=== PATIENT | female | born 1950 | race Caucasian/White ===

== ENCOUNTER 2020-01-28 15:37 | Outpatient (CLI) | payer BC, MEDICARE, SELFPAY ==
--- NOTE | ~2020-01-28 | CT_ITS ---
EXAMINATION: CT hip LT wo con DATE: 01/28/2020 16:12 INDICATION: Left hip pain TECHNIQUE: High resolution computed tomography (CT) of the left hip was performed without intravenous contrast. Imaging was extended to include the left femur through the distal aspect of the intramedul cheko rudi fixation. Additional sagittal and coronal reconstructions were performed. Automated exposure control and iterative reconstruction technique were employed. The dose-length product was 481.21 mGy -cm. COMPARISON: 07/03/2018 FINDINGS: Again seen is antegrade intramedullary rudi fixation of an intratrochanteric fracture of the proximal left femur. Fixation includes a femoral neck dynamic compression screw and interlocking screw at the level of the distal femur. There is a fracture at the central aspect of the distal screw which is dev iated slightly distally suggesting couple millimeter of subsidence of the intramedullary rudi. There i s thin rim of sclerosis at the margins of an eccentric lucency measuring up to 2.5 mm in thickness al yulissa the right side of the distal tip of the rudi and a small amount of sclerosis extending between the anterior cortex of the distal femur and the distal tip of the rudi suggesting the fracture and slight subsidence is chronic. There is also some callus formation extending around the head of the distal i nterlocking screw. There appears to be solid osseous fusion across portions of the fracture plane. Subacute appearing left femoral subcapital fracture with the cephalad margin of the fracture plane in volving a small portion of the articular surface at the periphery of the femoral head. There is mild inferior displacement of the femoral head resulting in up to 2 mm step-off at the superior to posteri or superior margin of the fracture plane. Subtle linear sclerosis extends from the subcapital fractur e line towards the superomedial aspect of the femoral head suggesting either an additional secondary nondisplaced fracture plane or the margins of a region of osteonecrosis. No evident subsidence of the overlying cephalad articular surface of the femoral head. No definitive left hip joint effusion. Osteoarthritis with mild to moderate nonuniform joint space narrowing at the lateral aspect of the pa tellofemoral compartment of the left knee. No left knee joint effusion. Visualized musculature of the left hemipelvis and left thigh appears unremarkable. Bladder, uterus, bilateral adnexa and visualize d portions of the bowels are unremarkable. No pathologically enlarged pelvic or inguinal lymphadenopa thy appreciated. IMPRESSION: 1. Minimal displacement of a left femoral subcapital fracture which involves a small portion of the p eripheral articular surface with 2 mm step-off. There is either an additional nondisplaced fracture p dov versus sclerotic margin of a region of osteonecrosis which extends to the superomedial aspect of the femoral head with no evidence subsidence of the cephalad articular surface of the femoral head. 2. Osseous fusion across portions of a chronic internally fixed intertrochanteric fracture of the pro ximal left femur with likely chronic failure of an interlocking screw at the distal left femur and sanderson ggestion of mild subsidence of the intramedullary rudi. Reviewed, dictated and finalized at location A. ER COMPRESSED GASES IMPRESSION: 1. Minimal displacement of a left femoral subcapital fracture which involves a small portion of the peripheral articular surface with 2 mm step-off. There is either an additional nondisplaced fracture plane versus sclerotic margin of a r egion of osteonecrosis which extends to the superomedial aspect of the femoral head with no evidence subsidence of the cephalad articular surface of the femor al head. 2. Osseous fusion across portions of
== END 2020-01-28 15:38 | disposition home or self-care (01) ==
PROVIDERS: Visit Provider Physician Assistant
DX: M25.552 Pain in left hip (principal)
CPT/HCPCS: 73700

== ENCOUNTER 2020-04-16 11:51 | Observation (INO) | payer BC, MEDICARE, SELFPAY ==
[2020-04-16] VITALS (9 sets, daily range): BP systolic 116–172; BP diastolic 56–84; PULSE 69–92; RESP 16–24; TEMP 36.4–36.7; O2SAT 91–98; BMI 27.5
--- NOTE | ~2020-04-16 | US_ITS ---
EXAMINATION: US venous doppler [facility] DATE: 04/17/2020 08:15 INDICATION: Lower limb swelling post left total hip arthroplasty. TECHNIQUE: Grayscale ultrasound images without and with compression and Doppler ultrasound images of the bilateral lower extremity veins were obtained. COMPARISON: None. FINDINGS: The visualized portions of right common femoral vein, profunda (deep) femoral vein, femoral vein, pop liteal vein, posterior tibial veins, peroneal veins, gastrocnemius vein and greater saphenous vein ou tflow are patent. The visualized portions of left common femoral vein, profunda femoral vein, femoral vein, popliteal v ein, posterior tibial veins, peroneal veins, gastrocnemius vein and greater saphenous vein outflow ar e patent. IMPRESSION: 1. No deep venous thrombosis in either lower limb. Reviewed, dictated and finalized at location A.
--- NOTE | ~2020-04-16 | XR_ITS ---
EXAMINATION: XR chest 2V DATE: 04/16/2020 12:16 INDICATION: Shortness of breath TECHNIQUE: AP and lateral views of the chest are obtained. COMPARISON: 06/03/2018 FINDINGS: There are airspace opacities of the right middle and lower lobes. There is no pleural effus ion or pneumothorax. The cardiomediastinal silhouette is normal. Multiple old right-sided rib fractur es are noted. In addition. There is vertebroplasty change and lower thoracic and upper lumbar vertebr al bodies. Surgical clips in the right upper quadrant are likely from prior cholecystectomy. IMPRESSION: 1. Minimal airspace opacity of the right middle and lower lobes, consistent with atelectasis versus p neumonia. Reviewed, dictated and finalized at location A. IMPRESSION: 1. Minimal airspace opacity of the right middle and lower lobes, consistent wit h atelectasis versus pneumonia.
--- NOTE | 2020-04-16 11:53 | ECG_ITS ---
Measurements Intervals Webb Rate: 87 P: 48 MA: 153 QRS: 1 QRSD: 144 T: 97 QT: 443 QTc: 534 Interpretive Statements SINUS RHYTHM WITH SINUS ARRHYTHMIA LEFT BUNDLE BRANCH BLOCK BASELINE ARTIFACT- I, III, AVR, AVL ABNORMAL ECG Electronically Signed On 04-16-2020 13:03:47 CDT by Mike Mg D.O.
[2020-04-16 12:17] LABS: Basophils Absolute Auto 0.1 K/mm3 (0.0-0.1); Basophils Percent Auto 0.6 % (0.2-1.2); Eosinophils Percent Auto 0.5 % (0-4.4); Hematocrit 27.6 % (37.0-47.0); Hemoglobin 8.5 g/dL (12.0-15.0); Immature Granulocyte Absolute 0.05 K/mm3 (0.00-0.031); Immature Granulocyte Percent A 0.6 % (0-0.5); Lymphocytes Absolute Auto 1.11 K/mm3 (0.9-3.2); Lymphocytes Percent Auto 12.7 % (18.3-44.2); Mean Corpuscular HGB Conc 30.8 g/dl (32-36); Mean Corpuscular Volume 87.6 fl (80-100); Mean Platelet Volume 8.7 fl (7.4-10.4); Monocytes Absolute Auto 0.5 K/mm3 (0.1-0.6); Monocytes Percent Auto 6.2 % (2.6-8.5); Neutrophils Percent Auto 79.4 % (45.5-73.1); Platelet Count Result 383 k/mm3 (150-375); Red Blood Count 3.15 M/mm3 (4.2-5.4); Red Cell Distribution Width 16.2 % (11.5-14.5); White Blood Count 8.7 K/mm3 (4.5-10.0)
[2020-04-16 12:27] LABS: Blood Urea Nitrogen 16 mg/dL (7-17); Calcium 9.2 mg/dL (8.4-10.2); Carbon Dioxide 26 mmol/L (22-30); Chloride 100 mmol/L (98-107); Estimated CRCL calculation 41 ml/min; Estimated Glomerular Filt Rate 45; Glucose 101 mg/dL (65-105); Potassium 4.2 mmol/L (3.4-5.0); Sodium 136 mmol/L (137-145)
--- NOTE | 2020-04-16 12:51 | ED.SOB ---
HPI - SOB/Dyspnea General Chief Complaint: Shortness of Breath/Dyspnea Stated Complaint: SOB Time Seen by Provider: 04/16/20 12:03 History of Present Illness HPI Narrative: Patient presents with shortness of breath from middle of the night last night. Patient had a left hip replacement on March 28 at [facility] in [facility]. She has been on Eliquis. She has not had any cough wheezing fever or chills. Chest to shortness of breath. Her appetite is good. She has been taking Percocet for her postop pain. The swelling in her left leg is dramatically decreased from yesterday because she elevated. 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 She does not smoke. She drinks moderately. She uses no drugs. MD elicited complaint: shortness of breath Pertinent past history: other (Recent hip surgery) Onset (ago): hour(s) Timing: constant Related Data Home Medications Medication Instructions Recorded Confirmed amlodipine-benazepril 1 cap DAILY 04/16/20 04/16/20 apixaban [Eliquis] 5 mg DAILY 04/16/20 04/16/20 dexlansoprazole [Dexilant] 60 mg PO DAILY 04/16/20 04/16/20 ergocalciferol (vitamin D2) 1 unit PO DAILY 04/16/20 04/16/20 escitalopram oxalate 20 mg PO DAILY 04/16/20 04/16/20 hydrocodone-acetaminophen 1 tablet PO Q4-6H PRN 04/16/20 04/16/20 rosuvastatin 10 mg PO DAILY 04/16/20 04/16/20 Allergies Allergy/AdvReac Type Severity Reaction Status Date / Time Penicillins Allergy Mild Anaphylaxis Verified 04/16/20 12:02 Sulfa (Sulfonamide Allergy Mild Anaphylaxis Verified 04/16/20 12:02 Antibiotics) Review of Systems Review of Systems: Narrative: CONSTITUTIONAL: Denies fever, chills, or sweats. EYES: Denies visual changes, redness, or discharge. ENT: Denies rhinorrhea, congestion, sore throat, or otalgia. CARDIOVASCULAR: Denies chest pain, palpitations, or edema. RESPIRATORY: Denies cough or dyspnea. GASTROINTESTINAL: Denies abdominal pain, nausea, vomiting, or diarrhea. GENITOURINARY: Denies dysuria or hematuria. SKIN: Denies rash or itching. MUSCULOSKELETAL: Denies back pain, joint pain, or myalgia. NEUROLOGIC: Denies headache, numbness, or weakness. PSYCHIATRIC: Denies anxiety or depression. [facility] Past Medical History Medical History Pneumonia Surgical History Surgical History (Updated 04/16/20 @ 12:54 by Pretty Warner MD) History of left hip replacement Social History Social History (Updated 04/16/20 @ 12:55 by Pretty Warner MD) Smoking status: Former smoker Alcohol intake: current Substance use: never Gender identity (if verbalized by the patient): Female Exam Narrative: Exam Narrative: GENERAL: Well-appearing, well-nourished, and in no acute distress. HEAD: Normocephalic, atraumatic. EYES: PERRLA and EOMI. ENT: Nares clear, no rhinorrhea or epistaxis. Mucous membranes moist. NECK: Supple. CHEST: Clear to auscultation. No respiratory distress. HEART: Regular rate and rhythm. No murmur heard. Normal peripheral pulses. ABDOMEN: Soft, nontender, nondistended, normal active bowel sounds. EXTREMITIES: Normal range of motion. Left lower leg is moderately swollen. SKIN: Warm, dry, no rash. NEURO: No focal deficits. Alert and oriented x3. PSYCH: Normal mood and affect. Quite noel lady. Course Consultations Consultation #1: Called the hospitalist at [phone]. Date: 04/16/20 Time: 12:59 Vital Signs Vital signs: Vital Signs Temperature 97.5 F L 04/16/20 11:55 Pulse Rate 92 04/16/20 11:55 Respiratory Rate 24 H 04/16/20 11:55 Blood Pressure 172/83 H 04/16/20 11:55 Pulse Oximetry 95 04/16/20 11:55 Temperature 97.5 F L 04/16/20 11:55 Pulse Rate 75 04/16/20 14:49 Respiratory Rate 18 04/16/20 14:49 Blood Pressure 128/64 04/16/20 14:49 Pulse Oximetry 98 04/16/20 14:49 MDM - SOB/Dyspnea Differential Diagnosis Differential diagnosis: Likely congestive heart failure, community acquired p
[2020-04-16 13:29] LABS: Lactic Acid 0.8 mmol/L (0.7-2.1)
[2020-04-16 13:38] LABS: NT Pro B Type Natriuretic Pept 14000 PG/ML (5-100)
[2020-04-16] MEDS: FUROSEMIDE INJ 40 MG/4 ML VIAL IV PUSH (14:31)
--- NOTE | 2020-04-16 17:40 | ADMGEN ---
This patient, Mirta Dow, was admitted to [facility] Surg Room 327-01. Patient/family oriented to hospital policies and general routines including ID bracelet, bed and alarms, visiting hours, pain management, procedures, bathroom and other care routines, personal items, smoking policy, room service/diet, and visiting hours. Valuables list has been completed. Information on how to activate the Rapid Response Team has been discussed. Patient/Family are encouraged to report perceived risks to care and to ask questions if they do not understand what they are told or what they should do. ADMITTED AT 1510
--- NOTE | 2020-04-16 18:25 | PM.IMHP ---
H&P: HPI History of Present Illness Chief complaint: pneumonia/LBBB/anemia Narrative: Mirta Dow is a 69 year old female presenting with dyspnea. On March 28 she underwent left total hip arthroplasty in [place]. Since that time she has not been taking her blood pressure medication because the blood pressure been running low in the hospital. She did not measure it at home. She felt well until the lime slaker hours of 04/16. She did notice increased swelling in her left lower extremity. She did not have a venous Doppler in [place]. She did not have pain or redness. 04/16 she propped the left leg up while in bed. When she awakened to urinate in the middle of the night she noted she was short of breath walking to the bathroom and back. This happened twice. When she awakened in morning she brushed her teeth it was very short of breath. She rested and then took her dog to the front door and again was very short of breath. Denied palpitations chest pain pressure syncope or presyncope or dizziness. Denied cough upper respiratory congestion sore throat fevers chills or sweats. Denied recent travel. Denied exposure to ill individuals. Denied prior history of congestive heart failure. Does have hypertension and hyperlipidemia and quit smoking in 2008 after about 40 pack years. Review of Systems Review of Systems: All systems reviewed & are unremarkable except as noted in HPI and below PMFSH Past Medical History Medical History (Updated 04/16/20 @ 18:32 by James Juares MD) Fracture of left hip ORIF 2019 GERD (gastroesophageal reflux disease) Pneumothorax at age 58 Surgical History Surgical History (Updated 04/16/20 @ 18:33 by James Juares MD) H/O lumbosacral spine surgery 4 times History of left hip replacement History of total left hip arthroplasty 03/28/2020 Hx of appendectomy Family History Family History (Updated 04/16/20 @ 18:36 by James Juares MD) Father Colon cancer Mother Lung cancer Acute myocardial infarction Sibling Non-Hodgkin lymphoma Bypass graft stenosis Social History Social History (Updated 04/16/20 @ 18:39 by James Juares MD) Smoking packs per day: 1 Smoking cigarettes per day: 20.0 Years smoked: 40 Smoking pack-years: 40.00 Smoking status: Former smoker Alcohol intake: current Alcohol use details: occasional cocktail Substance use: never Living arrangements: alone Occupation/Education: occupation Additional occupation/education comments: salon receptionist at [employer] Gender identity (if verbalized by the patient): Female Meds Home Medications and Allergies Home Medications Medication Instructions Recorded Confirmed Type amlodipine-benazepril 1 cap DAILY 04/16/20 04/16/20 History apixaban [Eliquis] 5 mg DAILY 04/16/20 04/16/20 History dexlansoprazole [Dexilant] 60 mg PO DAILY 04/16/20 04/16/20 History ergocalciferol (vitamin D2) 1 unit PO DAILY 04/16/20 04/16/20 History escitalopram oxalate 20 mg PO DAILY 04/16/20 04/16/20 History hydrocodone-acetaminophen 1 tablet PO Q4-6H PRN 04/16/20 04/16/20 History rosuvastatin 10 mg PO DAILY 04/16/20 04/16/20 History Allergies Allergy/AdvReac Type Severity Reaction Status Date / Time Penicillins Allergy Mild Anaphylaxis Verified 04/16/20 12:02 Sulfa (Sulfonamide Allergy Mild Anaphylaxis Verified 04/16/20 12:02 Antibiotics) Vital Signs Vital Signs - 24 hr 04/16/20 11:55 04/16/20 12:01 04/16/20 13:15 Temperature 97.5 F L Pulse Rate 92 83 84 Respiratory Rate 24 H 18 Blood Pressure 172/83 H 168/84 H Pulse Oximetry 95 95 04/16/20 14:11 04/16/20 14:49 04/16/20 17:14 Temperature Pulse Rate 82 75 75 Respiratory Rate 16 18 20 Blood Pressure 151/67 H 128/64 Pulse Oximetry 97 98 91 04/16/20 18:00 Temperature 98.0 F Pulse Rate 69 Respiratory Rate 18 Blood Pressure 136/65 Pulse Oximetry 98 Exam Narrative: Exam Narrative: HEENT: PAPI ESQUIVEL s
[2020-04-17] VITALS (10 sets, daily range): BP systolic 109–140; BP diastolic 63–75; PULSE 60–73; RESP 18–21; TEMP 35.9–37.1; O2SAT 94–98
[2020-04-17 07:15] LABS: Blood Urea Nitrogen 16 mg/dL (7-17); Calcium 8.9 mg/dL (8.4-10.2); Carbon Dioxide 30 mmol/L (22-30); Chloride 100 mmol/L (98-107); Estimated CRCL calculation 44 ml/min; Estimated Glomerular Filt Rate 49; Glucose 105 mg/dL (65-105); Sodium 136 mmol/L (137-145)
[2020-04-17] MEDS: POTASSIUM CHLORIDE 20 MEQ TABLET.ER PO (09:01)
[2020-04-17] MEDS: ESCITALOPRAM OXALATE 10 MG TABLET 20 MG PO (09:02)
[2020-04-17] MEDS: FUROSEMIDE INJ 40 MG/4 ML VIAL 20 MG IV PUSH ×2 (09:02→17:20)
[2020-04-17] MEDS: APIXABAN 5 MG TABLET BY MOUTH (09:02)
[2020-04-17] MEDS: ROSUVASTATIN 10 MG TABLET PO (09:02)
[2020-04-17] MEDS: PANTOPRAZOLE 40 MG TABLET PO (09:02)
--- NOTE | 2020-04-17 17:21 | PM.IMPN ---
Progress Note: A&P Assessment and Plan (1) CHF with unknown LVEF: Code(s): I50.9 - Heart failure, unspecified Status: Acute Assessment and Plan: New onset, likely due to hypertensive heart disease, r/o ischemic heart disease TSHr WNL Echo 04/18 IV fursemide F/u labs Adjust meds pending echo results (2) Hypoxia: Code(s): R09.02 - Hypoxemia Status: Acute Assessment and Plan: Acute Clinically due to CHF (3) Leg edema, left: Code(s): R60.0 - Localized edema Status: Acute Assessment and Plan: No DVT by doppler (4) Complete left bundle branch block: Code(s): I44.7 - Left bundle-branch block, unspecified Status: Acute Assessment and Plan: Present since at least 2013 (5) Anemia: Qualifiers: Anemia type: unspecified type Qualified Code(s): D64.9 - Anemia, unspecified Code(s): D64.9 - Anemia, unspecified Status: Acute Assessment and Plan: Post left total hip arthroplasty (6) Thrombocytosis: Code(s): D47.3 - Essential (hemorrhagic) thrombocythemia Status: Acute Assessment and Plan: Likely postoperative Subjective Date/time seen: 04/17/20 12:00 Interval history: Admitted 04/16 with dyspnea, new onset CHF. 04/17. Breathing much better. Continues to require supplemental oxygen. Denied chest pain, abdominal pain, dysuria, abnormal bleeding, joint pain, dizziness, weakness. Review of Systems Review of Systems: All systems reviewed & are unremarkable except as noted in HPI and below Exam Narrative: Exam Narrative: HEENT: EOMI, PERRL, sclerae nonicteric, pharyngeal mucosa pink and intact NECK: No JVD, adenopathy, or thyromegaly CHEST: Clear to auscultation. Normal effort. HEART: NL S1/S2, regular, no murmur ABDOMEN: BS+, soft, nontender, no mass, no bruits EXTREMITIES: No cyanosis, 1+ edema LLE, none RLE, pedal pulses intact NEUROLOGIC: CN intact and symmetric to inspection. MUSCULOSKELETAL: Tone and strength symmetric. PSYCH: Alert. Oriented to person, place, and time. Objective Data Vital Signs Vital Signs: Vital Signs - 24 hr 04/16/20 18:00 04/16/20 20:00 04/16/20 22:00 Temperature 98.0 F 97.9 F Pulse Rate 69 83 85 Respiratory Rate 18 20 Blood Pressure 136/65 116/56 L Pulse Oximetry 98 93 04/17/20 00:00 04/17/20 03:17 04/17/20 04:00 Temperature 98 F Pulse Rate 60 65 66 Respiratory Rate 20 Blood Pressure 128/66 Pulse Oximetry 96 04/17/20 05:46 04/17/20 08:00 04/17/20 10:00 Temperature 98.4 F 98.7 F Pulse Rate 64 72 63 Respiratory Rate 20 20 Blood Pressure 109/69 110/72 Pulse Oximetry 97 98 04/17/20 12:57 04/17/20 14:00 Temperature 96.7 F L Pulse Rate 65 Respiratory Rate 21 H Blood Pressure 112/75 Pulse Oximetry 97 98 Intake/Output Intake/Output: Intake & Output 04/14/20 04/15/20 04/16/20 04/17/20 23:59 23:59 23:59 23:59 Intake Total 590 920 Output Total 800 Balance 590 120 Meds/Results Medications: Active Medications Generic Name Dose Route Start Last Admin Trade Name Freq PRN Reason Stop Dose Admin Hydrocodone Bitart/Acetaminophen 1 tab 04/16/20 18:47 04/17/20 12:38 [place] 5-325 Mg PO 1 tab Q4-6H PRN Administration Pain, Moderate Apixaban 5 mg 04/17/20 09:00 04/17/20 09:02 Eliquis BY MOUTH 5 mg DAILY WILLIAM Administration Escitalopram Oxalate 20 mg 04/17/20 09:00 04/17/20 09:02 Lexapro PO 20 mg DAILY WILLIAM Administration Furosemide 20 mg 04/17/20 09:00 04/17/20 17:20 Lasix Inj IV PUSH 20 mg BID WILLIAM Administration Pantoprazole Sodium 40 mg 04/17/20 09:00 04/17/20 09:02 Protonix PO 05/17/20 09:01 40 mg DAILY WILLIAM Administration Potassium Chloride 20 meq 04/17/20 08:00 04/17/20 09:01 Kcl Tablet PO 20 meq DAILY@0800 WILLIAM Administration Rosuvastatin Calcium 10 mg 04/17/20 09:00 04/17/20 09:02 Crestor PO 10 mg HOSSEIN
--- NOTE | 2020-04-18 | ECHO_ITS ---
Patient Info Name: Mirta Sanders Dow Age: 69 years : 1950 Gender: Female Ht: 65 in Wt: 165 lbs BSA: 1.87 m2 HR: 69 bpm BP: 163 / 79 mmHg Heart Rhythm: Sinus Rhythm Technical Quality: Fair Exam Date: 04/18/2020 10:26 AM Exam Location: [facility] Pulmonary Patient Status: Outpatient Admit Date: 04/16/2020 Staff Ordering Physician: James Juares MD Cafeteria Cook: Griselda Ricks RDCS Attending Provider: James Juares MD Referring Physician: Mor BURGESS; Exam Type: CA echo doppler color flow Study Info Indications I50.40 - Unspecified combined systolic (congestive) and diastolic (congestive) heart failure Complete two-dimensional, color flow and Doppler transthoracic echocardiogram is performed. Summary 1. Left ventricular chamber dimension is mildly enlarged. 2. Left ventricular systolic function is normal, estimated at 55-60%. 3. There is mildly increased left ventricular wall thickness. 4. Left ventricular septal wall motion is abnormal with septal motion related to bundle branch block. 5. The left ventricular diastolic function is grade I diastolic dysfunction. 6. Left atrial chamber dimension is mildly enlarged. 7. Mild pulmonary hypertension, estimated pulmonary arterial systolic pressure is 35 mmHg. 8. There is mild tricuspid valve regurgitation. 9. There is mild mitral valve regurgitation. Left Ventricle Left ventricular chamber dimension is mildly enlarged. Left ventricular systolic function is normal, estimated at 55-60%. There is mildly increased left ventricular wall thickness. Left ventricular septal wall motion is abnormal with septal motion related to bundle branch block. The left ventricular diastolic function is grade I diastolic dysfunction. Right Ventricle Right ventricular chamber dimension is normal. Right ventricular systolic function is normal. Left Atria Left atrial chamber dimension is mildly enlarged. Right Atria Right atrial chamber dimension is normal. Aortic Valve The aortic valve is trileaflet. There is mild aortic valve sclerosis. There is no aortic valve stenosis. There is trace aortic valve regurgitation. Pulmonic Valve The pulmonic valve is normal. There is no pulmonic valve stenosis. There is trace pulmonic regurgitation. Mitral Valve The mitral valve has calcified annulus. There is no mitral valve stenosis. There is mild mitral valve regurgitation. Tricuspid Valve The tricuspid valve leaflets are normal. There is no significant tricuspid valve stenosis. There is mild tricuspid valve regurgitation. Mild pulmonary hypertension, estimated pulmonary arterial systolic pressure is 35 mmHg. Pericardium/Pleural The pericardium appears normal. There is no pericardial effusion. Inferior Vena Cava Normal inferior vena cava with <50% collapse upon inspiration consistent with elevated right atrial pressure, 10 mmHg. Aorta The aortic root size at the sinus of Valsalva is normal. The prox ascending aorta size is normal. Left Ventricular Outflow Tract Name Value Normal LVOT 2D LVOT Diameter 2.0 cm LVOT Doppler LVOT Peak Gradient
[2020-04-18 02:00] VITALS: BP 151/72; PULSE 71; RESP 18; TEMP 37.1; O2SAT 96
[2020-04-18 06:00] VITALS: BP 163/79; PULSE 69; RESP 18; TEMP 36.7; O2SAT 94
[2020-04-18 06:46] LABS: Blood Urea Nitrogen 17 mg/dL (7-17); Carbon Dioxide 33 mmol/L (22-30); Chloride 100 mmol/L (98-107); Estimated CRCL calculation 38 ml/min; Estimated Glomerular Filt Rate 41; Glucose 111 mg/dL (65-105); Potassium 3.9 mmol/L (3.4-5.0); Sodium 137 mmol/L (137-145)
--- NOTE | 2020-04-18 09:11 | PM.DS ---
DS: Summary Hospital Course Reason for hospitalization: SOB, swelling Hospital Course: Admitted with dyspnea and LE edema (L>R). Troponin and EKG unremarkable. CXR c/w CHF. SARS-CoV-2 negative. Responded well to IV furosemide for diuresis. LE venous doppler negative. Status at Discharge Overall status at discharge: patient is progressing back to baseline Time Spent with Patient Time attestation: Total time spent providing and/or coordinating discharge services: Time spent: Greater than 30 minutes Exam Narrative: Exam Narrative: HEENT: EOMI, PERRL, sclerae nonicteric, pharyngeal mucosa pink and intact NECK: No JVD, adenopathy, or thyromegaly CHEST: Clear to auscultation. Normal effort. HEART: NL S1/S2, regular, no murmur ABDOMEN: BS+, soft, nontender, no mass, no bruits EXTREMITIES: No cyanosis, 1+ edema LLE, none RLE, pedal pulses intact NEUROLOGIC: CN intact and symmetric to inspection. MUSCULOSKELETAL: Tone and strength symmetric. PSYCH: Alert. Oriented to person, place, and time. DS: Data Data Completed and Pending Labs on day of discharge: Labs from last 24 hours 04/18/20 04/16/20 06:13 13:16 Sodium 137 Potassium 3.9 Chloride 100 Carbon Dioxide 33 H BUN 17 Creatinine 1.30 H Estim Creat Clear Calc 38 Estimated GFR 41 L Glucose 111 H Calcium 9.0 COVID-19 Pt Symptomatic Not Reportable COVID-19 PCR Interp Not detected SARS-CoV-2 Source Not Reportable SARS-CoV-2 RNA (RT-PCR) Not Reportable Preliminary micro results at discharge 04/16/20 13:07 Blood Culture - Preliminary Blood 04/16/20 13:07 Blood Culture - Preliminary Blood Discharge Plan Discharge Consulting providers: Bebeto Cottrell ; Antelmo Rios ; Zeferino Hampton ; Mike Mg Discharging Clinician: James Juares Patient Disposition: Home Health Service Activity: as tolerated Diet: heart healthy and low sodium Discharge Instructions: per care coordination, pt. is current with [facility] and will resume services. [facility] can be contacted at [phone]. Nursing, please fax discharge instructions to [phone] once complete. Thank you. Weight daily and call MD if weight increases more than 2 pounds in any day or 4 pounds in a week. Check BP twice daily, AM and PM, record results, and report to MD in one week. DO NOT take BP medication if BP is under 120/70. If you feel dizzy, check BP sitting and after two minutes of standing;. Call MD if BP exceeds 160/100. Call MD if shortness of breath recurs. Patient Instructions: Antibiotic Form, Apixaban (By mouth), Heart Failure (DC), Heart Healthy Diet (DC), Low-Sodium Diet (DC) Stand Alone Forms: General Discharge Information Follow-up/Referrals: UNKNOWN,DOCTOR [Primary Care Provider] - Call for Appointment Discharge Medications: New lisinopril-hydrochlorothiazide 20-25 mg tablet 1 tablet PO DAILY Qty: 30 RF: 0 Continued hydrocodone-acetaminophen 5-325 mg tablet 1 tablet PO Q4-6H PRN (Reason: Pain, Moderate) RF: 0 ergocalciferol (vitamin D2) 1,250 mcg (50,000 unit) capsule 1 unit PO DAILY RF: 0 escitalopram oxalate 20 mg tablet 20 mg PO DAILY RF: 0 rosuvastatin 10 mg tablet 10 mg PO DAILY RF: 0 Dexilant 60 mg capsule,biphase delayed releas 60 mg PO DAILY RF: 0 Eliquis 5 mg Tablet 5 mg DAILY RF: 0 Discontinued amlodipine-benazepril 10-20 mg capsule 1 cap DAILY RF: 0 Other Ambulatory Orders: CA stress moisés w NM (Routine) Timeframe: 1 Week Location: Determined by Patient Ordered By: James Juares Date of admission: 04/16/20 13:02 Primary Care Provider: UNKNOWN,DOCTOR Admitting Provider: James Juares Discharge Date/Time: 04/18/20 14:45 Attending physician on admission: James Juares Condition: Stable Quality VTE Prophylaxis VTE prophylaxis: pharmacologic ordered
[2020-04-18] MEDS: APIXABAN 5 MG TABLET BY MOUTH (09:15)
[2020-04-18] MEDS: FUROSEMIDE INJ 40 MG/4 ML VIAL 20 MG IV PUSH (09:15)
[2020-04-18] MEDS: POTASSIUM CHLORIDE 20 MEQ TABLET.ER PO (09:15)
[2020-04-18] MEDS: ESCITALOPRAM OXALATE 10 MG TABLET 20 MG PO (09:15)
[2020-04-18] MEDS: ROSUVASTATIN 10 MG TABLET PO (09:16)
[2020-04-18] MEDS: PANTOPRAZOLE 40 MG TABLET PO (09:16)
[2020-04-18] MEDS: lisinopriL 20 MG TABLET PO (10:46)
[2020-04-18] MEDS: hydroCHLOROthiazide 25 MG TABLET PO (10:46)
== END 2020-04-18 14:45 | disposition home health service (06) ==
LOC: ANHED 13:13 → ANH3MEDSUR 14:32
PROVIDERS: Admitting Provider Internal Medicine; Emergency Provider Emergency Medicine; Visit Provider Internal Medicine
DX: I11.0 Hypertensive heart disease with heart failure (principal); I50.9 Heart failure, unspecified; R09.02 Hypoxemia; R60.0 Localized edema; D64.9 Anemia, unspecified; E78.5 Hyperlipidemia, unspecified; D47.3 Essential (hemorrhagic) thrombocythemia; I44.7 Left bundle-branch block, unspecified; K21.9 Gastro-esophageal reflux disease without esophagitis; Z20.828 Contact with and (suspected) exposure to other viral communicable diseases; Z96.642 Presence of left artificial hip joint; Z79.01 Long term (current) use of anticoagulants; Z79.899 Other long term (current) drug therapy; Z87.891 Personal history of nicotine dependence
CPT/HCPCS: 36415; 71046; 80048; 83605; 83880; 84443; 85025; 87040; 87635; 87804; 93005; 93306; 93970; 96365; 96367; 96375; 96376; 99285; A9270; C9803; G0378; J0456; J0696; J1940; U0003

== ENCOUNTER 2021-04-18 10:42 | Emergency (ER) | payer BC, MEDICARE, SELFPAY ==
--- NOTE | ~2021-04-18 | XR_ITS ---
XR facial bones min 3V DATE: 04/18/2021 11:40 INDICATION: Fall this morning. Right periorbital pain and bruising TECHNIQUE: niesha Rojas, lateral and submental vertical views COMPARISON: None FINDINGS: The frontozygomatic sutures, orbital rims and floors appear intact. No facial fracture is e vident. Nasal bones and anterior maxillary spine are intact. Normal sella turcica. Normal alignment of the upper cervical spine. Mastoid air cells and paranasal sinuses are normally developed and aerated. IMPRESSION: No evidence of facial fracture Reviewed, dictated and finalized at location B.
--- NOTE | ~2021-04-18 | XR_ITS ---
EXAMINATION: XR hand RT 2V EXAM DATE: 04/18/2021 11:40 INDICATION: Fall this a.m.; pain/swelling ulnar side Rt hand . Initial encounter. TECHNIQUE: Right hand frontal, lateral and oblique projections obtained and reviewed. There is no pr ior study for comparison. FINDINGS: There is acute closed posttraumatic fracture of the right 5th metacarpal shaft proximally, fracture line identified on an oblique projection, indicated for clinical correlation. There is overl axel soft tissue swelling. Phalanges are unremarkable. IMPRESSION: Acute nondisplaced right 5th metacarpal shaft fracture. Reviewed, dictated and finalized at location A.
[2021-04-18 10:51] VITALS: BP 131/66; PULSE 72; RESP 16; TEMP 36.8; O2SAT 97
--- NOTE | 2021-04-18 11:20 | ED.GENADULT ---
HPI - General Adult General Chief complaint: Wound/Laceration Stated complaint: face injury Time Seen by Provider: 04/18/21 11:10 Source: patient and RN notes reviewed Mode of arrival: ambulatory Limitations: no limitations History of Present Illness HPI narrative: 70-year-old female presents with complaints of laceration to right upper face and bruising throughout face after tripping over a paint TORP 4 hours ago. Mirta reports walking outside in garage and fell hitting face on concrete ground. Believes laceration caused by eyeglasses. Oxycodone without relief. Denies no loss of consciousness, blurred vision, double vision, dizziness, or seizure activity. Denies vertigo or immobility. Denies numbness or tingling, or weakness of upper or lower extremities. No foreign body sensation. Tetanus not up-to-date. LMP post-menopausal. Remains active. The patient reports she have not been diagnosed with COVID-19. The patient reports she received 2 [employer] COVID-19 vaccines. The patient reports she is not waiting for the results of a COVID-19 lab test. The patient reports she do not have chills, weakness, or fatigue. The patient reports she do not have a new or worsening cough or shortness of breath. Denies chest pain. The patient reports she do not have any rhinorrhea, congestion, sore throat, loss of taste or smell, nausea, vomiting, abdominal pain, and diarrhea. Tolerating po intake well. Denies recent traveling. Denies concerns for COVID-19 or exposures. At this time, patient is not suspected of having COVID-19. Complains of right hand pain after fall for the past 4 hours. Mirta reports using hand to break fall. Oxycodone without relief. No radiation of pain. No numbness or tingling. No loss of mobility. Exacerbating factors consist of movement and palpation. No relieving factors. Dominant hand is the RIGHT HAND. Some parts of this dictation were generated by voice recognition software and may contain typographical and/or grammatical inaccuracies Related Data Home Medications Medication Instructions Recorded Confirmed Dexilant 60 mg PO DAILY 04/16/20 04/16/20 ergocalciferol (vitamin D2) 1 unit PO DAILY 04/16/20 04/16/20 escitalopram oxalate 20 mg PO DAILY 04/16/20 04/16/20 hydrocodone-acetaminophen 1 tablet PO Q4-6H PRN 04/16/20 04/16/20 rosuvastatin 10 mg PO DAILY 04/16/20 04/16/20 Allergies Allergy/AdvReac Type Severity Reaction Status Date / Time Penicillins Allergy Mild Anaphylaxis Verified 04/16/20 12:02 Sulfa (Sulfonamide Allergy Mild Anaphylaxis Verified 04/16/20 12:02 Antibiotics) Review of Systems Review of Systems: Narrative: CONSTITUTIONAL: Denies fever, chills, sweats. EYES: Denies visual changes, redness, discharge. ENT: Denies rhinorrhea, congestion, sore throat, otalgia. CARDIOVASCULAR: Denies chest pain, palpitations, edema. RESPIRATORY: Denies dyspnea, wheezing, cough. GASTROINTESTINAL: Denies abdominal pain, nausea, vomiting, diarrhea. GENITOURINARY: Denies dysuria, hematuria, abnormal discharge. SKIN: Complains of laceration to RT upper face, diffused RT facial bruising and swelling. MUSCULOSKELETAL: Denies acute back pain, joint pain, or myalgia. Complains of right hand pain. NEUROLOGIC: Denies numbness or focal weakness. PSYCHIATRIC: Denies anxiety or depression. All other systems reviewed & are unremarkable except as noted in HPI and below. [facility] Past Medical History Medical History Diastolic CHF Fracture of left hip ORIF 2019 GERD (gastroesophageal reflux disease) Pneumothorax at age 58 Surgical History Surgical History H/O lumbosacral spine surgery 4 times History of left hip replacement History of total left hip arthroplasty 03/28/2020 Hx of appendectomy Family History Family History Father
[2021-04-18] MEDS: TETANUS,DIPHTHERIA,AC PERTUSSIS ADULT (0.5 ML) BOOSTRIX IM (11:42)
== END 2021-04-18 12:27 | disposition home or self-care (01) ==
PROVIDERS: Emergency Provider Nurse Practitioner Family
DX: S01.81XA Laceration without foreign body of other part of head, initial encounter (principal); S62.356A Nondisplaced fracture of shaft of fifth metacarpal bone, right hand, initial encounter for closed fracture; W18.09XA Striking against other object with subsequent fall, initial encounter; Z23 Encounter for immunization; K21.9 Gastro-esophageal reflux disease without esophagitis; I50.30 Unspecified diastolic (congestive) heart failure; Z87.891 Personal history of nicotine dependence
CPT/HCPCS: 12011; 29125; 70150; 73120; 90471; 90715; 99214; G0463

== ENCOUNTER 2022-03-06 12:51 | Emergency (ER) | payer BC, MEDICARE, SELFPAY ==
--- NOTE | ~2022-03-06 | CT_ITS ---
EXAMINATION: CT diagnostic chest wo con, CT thoracic spine wo con EXAM DATE: 03/06/2022 16:47 INDICATION: TECHNIQUE: Spiral CT of the chest and thoracic spine without contrast. Axial, coronal and sagittal images of the chest were reviewed. Coronal maximum intensity pixel images of chest reviewed. Axial, coronal and sagittal images of the thoracic spine were reviewed. The dose-length product (DLP) for this examination was 400.34 (accession [id number]), 1105.62 (accession [id number]) mGy-cm. T he exposure was tailored according to patient size (auto mA exposure control), and iterative reconstr uction (ASIR) was used as additional dose reduction technique. There is no prior study for compariso n. FINDINGS: Shape to the right hemithorax, congenital versus old traumatic finding. No definite acute r ib fracture. The lungs are clear. There is small sliding gastroesophageal hiatal hernia. There is mod erate hyperinflation. There are no pleural or pericardial effusions. Tracheobronchial tree is wilhelm nt. There is no mediastinal, hilar or axillary lymphadenopathy. There is no pneumothorax. Heart normal in size. There is moderate coronary arterial calcification, arterial sclerosis. Upper abdo men is unremarkable. Thoracic spine demonstrates no paraspinal hematoma. Mild to moderate chronic compression fractures at T11, T12 and L1, with methylmethacrylate injections at T11 and L1 levels, vertebroplasty. There is m ild chronic appearing compression fracture of T10. Short appearing mid and lower thoracic spinous pro cesses, appearance suggests that patient has had prior surgical changes of the thoracic spine but ple ase correlate with history. Some sclerosis of the T8 spinous process which is nonspecific. No metasta tic disease suspected. There is moderate thoracic disc disease. The vertebral bodies are aligned in t he AP dimension. Thoracic central canal appears patent. IMPRESSION: 1. No acute cardiopulmonary findings or fracture. 2. Chronic thoracolumbar compression fractures. 3. Hyperinflation Reviewed, dictated and finalized at location A. IMPRESSION: 1. No acute cardiopulmonary findings or fracture. 2. Chronic thoracolumbar compression fractures. 3. Hyperinflation
--- NOTE | ~2022-03-06 | CT_ITS ---
EXAMINATION: CT brain wo con, CT cervical spine wo con EXAM DATE: 03/06/2022 16:46 INDICATION: Fall, head injury. TECHNIQUE: Spiral CT of the head was performed without contrast. Axial, coronal and sagittal images were reviewed. Spiral CT of the cervical spine was performed without contrast. Axial images were rev iewed. Coronal and sagittal reformatted images were also reviewed. The dose-length product (DLP) fo r this examination was 605.33 (accession [id number]), 237.44 (accession [id number]) mGy-cm. The exposure was tailored according to patient size, and iterative reconstruction (ASIR) was used as additional dose reduction technique. There is no prior study for comparison. 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 There is no acute intraparenchymal hemorrhage. No evidence of intraparenchymal brain mass lesion. No evidence of acute infarction. There is no mass effect or midline shift. There is no obstructive hydrocephalus suspected. There are no extra-axial collections. There are no acute calvarial fractures. The orbits are unremarkable. Soft tissue is u nremarkable. The visualized sinuses and mastoid air cells are well aerated. CERVICAL CT: There is no evidence of acute cervical fracture. The odontoid process is intact. Pre- dens space is normal. Prevertebral soft tissue is normal. There are no soft tissue abnormalities id entified. There is no disc space widening or traumatic vertebral body subluxation suspected. Mild l oss of the C7 vertebral body height anteriorly, mild chronic appearing compression fracture. There is moderate disc disease at C5-6, mild at the other cervical levels. There is overall mild to moderate cervical arthropathy. A detailed level by level evaluation of spondylosis can be added as addendum i f requested. IMPRESSION: 1. No acute intracranial findings or cervical fracture. 2. Mild chronic C7 compression fracture. 3. Mild to moderate cervical spondylosis. Reviewed, dictated and finalized at location A. IMPRESSION: 1. No acute intracranial findings or cervical fracture. 2. Mild chronic C7 compression fracture. 3. Mild to moderate cervical spondylosis.
[2022-03-06 13:12] VITALS: BP 114/63; PULSE 73; RESP 18; TEMP 36.5; O2SAT 98
--- NOTE | 2022-03-06 15:40 | ED.FALL ---
HPI - Fall General Chief Complaint: Fall Stated Complaint: fall Time Seen by Provider: 03/06/22 15:37 Source: patient and family Mode of arrival: ambulatory Limitations: no limitations History of Present Illness HPI Narrative: The patient is a 71 yo female with a history of hypertension, congestive heart failure, presenting to the emergency department for evaluation following a fall. Patient states that she initially fell on Saturday, 5 days ago when she was walking into a mall to return a sweater. Patient reports this was a mechanical fall, states that she tripped while walking. Patient has a history of frequent falls. Patient states that when she fell, she hit her face on the pavement as well as her chest. Patient denies any loss of conscious. She is not on any anticoagulation. She presented to an outside facility where she was evaluated had CT head, spine, chest x-ray that were read as no acute findings. I did read over the reports from the outlying facility that were available in the patient's EMR. There was concern about a possible compression fracture versus chronic deformity at the level of C7. Ultimately it was felt that this was a chronic finding and the patient was discharged home as she was neurologically intact. Patient denies any fever, chills, vision changes, nausea, vomiting, lower extremity weakness. She has been ambulatory. Denies recurrent fall. States that she continues to have significant chest wall pain especially with movement such as sneezing or coughing. She denies any significant cough or hemoptysis. She has been taking oxycodone, Percocet without much improvement in her symptoms, states that Aleve does improve her pain. Patient states that her primary care provider referred her to the emergency department to be seen given the amount of pain that she is experiencing. Patient denies any shortness of breath. Denies any anginal type pain. Denies jaw pain, neck pain, radiation of the pain to the back. No pressure to the chest. No squeezing pain. Patient reports that pain only occurs with movement. Patient denies any nausea, vomiting, diarrhea. Denies recent medication changes. She has been tolerating oral intake normally. She denies any abdominal pain. No dysuria or hematuria. Related Data Home Medications Medication Instructions Recorded Confirmed dexlansoprazole [Dexilant] 60 mg PO DAILY 04/16/20 04/16/20 ergocalciferol (vitamin D2) 1 unit PO DAILY 04/16/20 04/16/20 escitalopram oxalate 20 mg PO DAILY 04/16/20 04/16/20 hydrocodone-acetaminophen 1 tablet PO Q4-6H PRN 04/16/20 04/16/20 rosuvastatin 10 mg PO DAILY 04/16/20 04/16/20 Allergies Allergy/AdvReac Type Severity Reaction Status Date / Time Penicillins Allergy Mild Anaphylaxis Verified 03/06/22 15:17 Sulfa (Sulfonamide Allergy Mild Anaphylaxis Verified 03/06/22 15:17 Antibiotics) Review of Systems Review of Systems: CONSTITUTIONAL: Denies fever, chills, or sweats. EYES: Denies visual changes, redness, or discharge. ENT: Denies rhinorrhea, congestion, sore throat, or otalgia. CARDIOVASCULAR: Denies chest pain, palpitations, or edema. Reports chest wall pain. RESPIRATORY: Denies cough or dyspnea. GASTROINTESTINAL: Denies abdominal pain, nausea, vomiting, or diarrhea. GENITOURINARY: Denies dysuria or hematuria. SKIN: Reports bruising to right wrist, nasal bridge, eyes MUSCULOSKELETAL: Denies back pain, joint pain, or myalgia. NEUROLOGIC: Reports headache without numbness, or weakness. [facility] Past Medical History Medical History Diastolic CHF Fracture of left hip ORIF 2019 GERD (gastroesophageal reflux disease) Pneumothorax at age 58 Surgical History Surgical History H/O lumbosacral spine surgery 4 times History of left hip replacement History of total left hip arthroplasty 03/28/2020 Hx of appendectomy Family His
== END 2022-03-06 17:48 | disposition home or self-care (01) ==
PROVIDERS: Emergency Provider Emergency Medicine
DX: S29.019A Strain of muscle and tendon of unspecified wall of thorax, initial encounter (principal); I11.0 Hypertensive heart disease with heart failure; I50.9 Heart failure, unspecified; Z87.891 Personal history of nicotine dependence; W01.198A Fall on same level from slipping, tripping and stumbling with subsequent striking against other object, initial encounter
CPT/HCPCS: 70450; 71250; 72125; 72128; 99284

== ENCOUNTER 2023-08-03 10:32 | Outpatient (CLI) | payer BC, MEDICARE, SELFPAY ==
--- NOTE | ~2023-08-03 | MM_ITS ---
EXAMINATION: MM screening lupe BI w bryce HISTORY: Screening mammogram TECHNIQUE: Craniocaudal and mediolateral oblique 3-D tomosynthesis images were obtained and synthetic 2-D images were generated. CAD analysis was submitted and interpreted. COMPARISON: No prior mammogram is available for comparison at this institution. BREAST PARENCHYMAL COMPOSITION: There are scattered areas of fibroglandular density. FINDINGS: There are grouped microcalcifications in the posterior outer mid right breast. Diagnostic r ight mammogram with magnification views is recommended, with ultrasound if required. Scattered benign calcifications are noted elsewhere in each breast. No suspicious mass or architectural distortion, skin thickening or retraction of either breast is det ected. IMPRESSION: 1. Microcalcifications, posterior outer mid right breast 2. Diagnostic right mammogram with magnification views is recommended, with ultrasound if required BI-RADS Category 0: Incomplete: Needs additional imaging evaluation. Reviewed, dictated and finalized at location A. IMPRESSION: 1. Microcalcifications, posterior outer mid right breast 2. Diagnostic right mammogram with magnification views is recommended, with ult rasound if required BI-RADS Category 0: Incomplete: Needs additional imaging evaluation.
== END 2023-08-03 10:33 | disposition home or self-care (01) ==
LOC: ANHIMG 10:35
PROVIDERS: PCP Nurse Practitioner Family; Visit Provider Nurse Practitioner Family
DX: Z12.31 Encounter for screening mammogram for malignant neoplasm of breast (principal); R92.8 Other abnormal and inconclusive findings on diagnostic imaging of breast
CPT/HCPCS: 77063; 77067

== ENCOUNTER 2023-09-04 12:24 | Outpatient (CLI) | payer BC, MEDICARE, SELFPAY ==
--- NOTE | ~2023-09-04 | MM_ITS ---
EXAMINATION: MM diagnostic mammo unilat RT HISTORY: Right breast calcifications on screening mammogram TECHNIQUE: Additional 3-D tomosynthesis images of the right breast were performed and synthetic 2-D i mages were generated. Magnification views are also obtained. CAD analysis was submitted and interpret ed. COMPARISON: 08/03/2023, 09/05/2018, 10/14/2015 BREAST PARENCHYMAL COMPOSITION: There are scattered areas of fibroglandular density. FINDINGS: There are grouped coarse heterogeneous calcifications in the posterior third of the outer r ight breast at the 9:00 location, 10 cm from the nipple. No associated mass or architectural distorti on are identified. IMPRESSION: 1. Indeterminate right breast calcifications. 2. Stereotactic right breast biopsy is recommended. BI-RADS category 4, suspicious findings. Reviewed, dictated and finalized at location A.
== END 2023-09-04 12:25 | disposition home or self-care (01) ==
LOC: ANHIMG 12:26
PROVIDERS: PCP Nurse Practitioner Family; Visit Provider Nurse Practitioner Family
DX: R92.8 Other abnormal and inconclusive findings on diagnostic imaging of breast (principal)
CPT/HCPCS: 77065

== ENCOUNTER 2024-05-25 19:32 | Emergency (ER) | payer BC, MEDICARE, SELFPAY ==
--- NOTE | ~2024-05-25 | CT_ITS ---
CT cervical spine wo con Ordering provider: Heydi Leija History: . fall, neck pain . Comparison: None. Technique: CT of the cervical spine was performed without contrast. Sagittal and coronal reformatted images were also obtained and reviewed. Automated exposure control and iterative reconstruction abner hnique were employed. The dose-length product was 362.31 mGy-cm. FINDINGS: VERTEBRAE: Loss of volume is seen and C7 which is most likely chronic fracture. Otherwise, No subluxa tion or acute fracture. The occipital condyles are intact. DISC SPACES: Normal. Multilevel uncovertebral joint osteoarthritic changes. Narrowing of the right intervertebral foramen at the level of C3-C4. PARASPINOUS SOFT TISSUES: Normal. Bilateral carotid atherosclerotic changes. IMPRESSION: No acute osseous abnormality cervical spine. Reviewed, dictated and finalized at location A.
--- NOTE | ~2024-05-25 | CT_ITS ---
CT brain wo con Ordering provider: Heydi Leija PA-C History: 73 years Female with . fall, hit head . Comparison: March 06, 2022 Technique: CT of the head without contrast. . Radiation reduction technique utilized. DLP is 681mGy. FINDINGS: BRAIN PARENCHYMA AND CSF SPACES: Deep white matter ischemic changes with mild brain atrophy. Lacunar infarct in the left basal ganglia. No midline shift, mass effect or hemorrhage. The brain parenchyma and CSF spaces are otherwise normal. VISUALIZED PARANASAL SINUSES: Well aerated. MASTOIDS: Well aerated. BONES: The bones appear intact. SOFT TISSUES: Hematoma in the left occipital scalp. Otherwise, Visualized nasopharynx is normal. Supe rficial soft tissues are normal. IMPRESSION: No acute intracranial findings. Reviewed, dictated and finalized at location A.
[2024-05-25 19:35] VITALS: BP 118/54; PULSE 66; RESP 16; TEMP 36.6; O2SAT 94
--- NOTE | 2024-05-25 22:25 | ED.FALL ---
HPI - Fall General Chief Complaint: Fall Stated Complaint: fall Time Seen by Provider: 05/25/24 22:19 Source: patient Mode of arrival: ambulatory Limitations: no limitations History of Present Illness HPI Narrative: Patient presents as a ground level fall after accidentally tripping on the edge of the curb. She struck the back of her head has some pain in this area. No pain medication taken prior to arrival. She was also endorsing some pain in her neck at triage for this reason a was placed. No loss of consciousness and not anticoagulation. No other complaints. Related Data Home Medications Medication Instructions Recorded Confirmed dexlansoprazole 60 mg 60 mg PO DAILY 04/16/20 04/16/20 capsule,biphase delayed release (Dexilant) ergocalciferol (vitamin D2) 1,250 1 unit PO DAILY 04/16/20 04/16/20 mcg (50,000 unit) capsule escitalopram oxalate 20 mg tablet 20 mg PO DAILY 04/16/20 04/16/20 hydrocodone 5 mg-acetaminophen 325 1 tablet PO Q4-6H PRN Pain, 04/16/20 04/16/20 mg tablet Moderate rosuvastatin 10 mg tablet 10 mg PO DAILY 04/16/20 04/16/20 Allergies Allergy/AdvReac Type Severity Reaction Status Date / Time Penicillins Allergy Mild Anaphylaxis Verified 05/25/24 19:41 Sulfa (Sulfonamide Allergy Mild Anaphylaxis Verified 05/25/24 19:41 Antibiotics) [facility] Past Medical History Medical History Diastolic CHF Fracture of left hip ORIF 2018 GERD (gastroesophageal reflux disease) Pneumothorax at age 58 Surgical History Surgical History H/O lumbosacral spine surgery 4 times History of left hip replacement History of total left hip arthroplasty 03/28/2020 Hx of appendectomy Family History Family History Father Colon cancer Mother Lung cancer Acute myocardial infarction Sibling Non-Hodgkin lymphoma Bypass graft stenosis Social History Social History Smoking packs per day: 1 Smoking cigarettes per day: 20.0 Years smoked: 40 Smoking pack-years: 40.00 Smoking status: Former smoker Alcohol intake: current Alcohol use details: occasional cocktail Substance use: never Living arrangements: alone Occupation/Education: occupation 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 HEAD: Small posterior scalp hematoma active bleeding or laceration. EYES: Non injected, non icteric ENT: Nares clear, no rhinorrhea or epistaxis. NECK: Supple. CHEST: Speaking in full sentences. No respiratory distress. HEART: Regular rate and rhythm. . ABDOMEN: Soft, nondistended. EXTREMITIES: Normal range of motion. No edema. SKIN: Warm, dry, no rash. NEURO: No focal deficits. Alert and oriented x3. PSYCH: Normal mood and affect. Course Vital Signs Vital signs: Vital Signs Temperature 97.8 F 05/25/24 19:35 Pulse Rate 66 05/25/24 19:35 Respiratory Rate 16 05/25/24 19:35 Blood Pressure 118/54 L 05/25/24 19:35 Pulse Oximetry 94 05/25/24 19:35 Oxygen Delivery Room Air 05/25/24 19:35 Temperature 97.8 F 05/25/24 19:35 Pulse Rate 76 05/25/24 22:56 Respiratory Rate 15 05/25/24 22:56 Blood Pressure 155/88 H 05/25/24 22:56 Pulse Oximetry 95 05/25/24 22:56 Oxygen Delivery Room Air 05/25/24 19:35 MDM - Fall MDM Narrative Medical decision making narrative: Patient presents after accidentally tripping on the edge of a curb and falling striking the back of her head. Not on anticoagulation no loss of consciousness. In the emergency department she is afebrile with acceptable vital signs. Imaging negative. C-collar removed after confirming no cervical spine in
[2024-05-25] MEDS: HYDROcodone/acetaminophen (*CRX) 5-325 MG TABLET 1 TAB PO (22:47)
[2024-05-25 22:56] VITALS: BP 155/88; PULSE 76; RESP 15; O2SAT 95
== END 2024-05-25 22:58 | disposition home or self-care (01) ==
LOC: ANHED 22:43
PROVIDERS: Emergency Provider Student in an Organized Health Care Education/Training Program; PCP Nurse Practitioner Family
DX: S00.03XA Contusion of scalp, initial encounter (principal); I50.30 Unspecified diastolic (congestive) heart failure; Z87.891 Personal history of nicotine dependence; W01.0XXA Fall on same level from slipping, tripping and stumbling without subsequent striking against object, initial encounter
CPT/HCPCS: 70450; 72125; 99284; A9270